=== PATIENT | female | born 2000 | race Two or more races ===

== ENCOUNTER 2025-06-27 12:08 | Emergency (ER) | payer OTHER ==
[~2025-06-27] VITALS: Ht 167.6 cm; Wt 81.6 kg
[2025-06-27 12:52] VITALS: BP 117/79; O2SAT 98
== END 2025-06-27 22:11 | disposition home or self-care (01) ==
LOC: ER 12:08
DX: M25.571 Pain in right ankle and joints of right foot (principal); Z88.8 Allergy status to other drugs, medicaments and biological substances